=== PATIENT | female | born 1980 | race Hispanic/Latino ===

== ENCOUNTER 2018-08-13 06:58 | Day surgery (SDC) | payer OTHER ==
[2018-08-12 17:25] VITALS: BP 128/72
[2018-08-13] VITALS (14 sets, daily range): BP systolic 115–142; BP diastolic 64–85
[~2018-08-13] VITALS: Ht 165.1 cm; Wt 90.7 kg
[~2018-08-13 06:58] MED LIST: OMEP20CA10 PO; [UNRECOGNIZED DRUG - REMARK] PO
[2018-08-13 07:22] LABS: BASOPHILS % (AUTO) 0.5 % (0.0-5.0); EOSINOPHILS % (AUTO) 1.3 % (0.0-8.0); HEMATOCRIT 36.8 % (36-48); LYMPHOCYTES % (AUTO) 26.4 % (21.0-51.0); MEAN CORPUSCULAR HEMOGLOBIN 24.6 pg (27.0-33.0); MEAN CORPUSCULAR HGB CONC 31.3 g/dL (32.0-36.0); MEAN CORPUSCULAR VOLUME 78.6 fL (79-99); MONOCYTES % (AUTO) 7.5 % (3.0-13.0); NEUTROPHILS % (AUTO) 64.3 % (40.0-77.0); NUCLEATED RED BLOOD CELLS 0.1 % (0.0-0.19); PLATELET COUNT (AUTO) 382 K/uL (130-400); RED BLOOD CELL COUNT(AUTO) 4.69 MIL/uL (4.00-5.50); WHITE BLOOD COUNT (AUTO) 10.5 K/uL (4.8-10.8)
[2018-08-13] MEDS: LACTATED RINGERS 1000ML 1,000 ML IV SCH ×2 (07:37→08:56)
[2018-08-13] MEDS ORDERED: LIDOCAINE PF 2% 5ML ABBOJECT ONE (08:06)
[2018-08-13] MEDS ORDERED: PROPOFOL 1000 MG/100 ML 100 ML IV ONE (08:06)
[2018-08-13] MEDS ORDERED: ONDANSETRON HCL MDV 20ML 2 MG/ML VIAL ONE (08:06)
[2018-08-13] MEDS ORDERED: FENTANYL CITRATE PF 50 MCG/1 ML 2ML VIAL ONE (08:07)
[2018-08-13] MEDS ORDERED: MIDAZOLAM HCL 1 MG/ML 2ML VIAL ONE (08:07)
[2018-08-13] MEDS ORDERED: ROCURONIUM 10MG/1ML SYR 10 MG/ML ML ONE (08:08)
[2018-08-13] MEDS ORDERED: ACETIC ACID 0.25% 1,000 ML IRRIG.SOLN ONE (08:10)
[2018-08-13] MEDS ORDERED: STRONG IODINE SOLUTION 30ML BOTTLE ONE (08:11)
[2018-08-13] MEDS ORDERED: MEPERIDINE-PF 25 MG/ML SYG ONE ×2 (09:08→09:22)
== END 2018-08-13 11:00 | disposition home or self-care (01) ==
LOC: DAH 06:58
PROVIDERS: ATTEND Obstetrics & Gynecology
DX: N84.1 Polyp of cervix uteri (principal); D64.9 Anemia, unspecified; K21.9 Gastro-esophageal reflux disease without esophagitis
CPT/HCPCS: 36415; 57522; 85025; 86850; 86900; 86901; 88305 ×2; A4351; A4556; A4606; J2001; J2175 ×2; J2250; J2704; J3010; J7120 ×2

== ENCOUNTER 2021-03-01 05:35 | Observation (INO) | payer OTHER ==
[2021-02-28 10:31] LABS: BASOPHILS % (AUTO) 0.5 % (0.0-5.0); EOSINOPHILS % (AUTO) 1.7 % (0.0-8.0); HEMATOCRIT 38.9 % (36-48); LYMPHOCYTES % (AUTO) 29.1 % (21.0-51.0); MEAN CORPUSCULAR HEMOGLOBIN 24.5 pg (27.0-33.0); MEAN CORPUSCULAR HGB CONC 30.3 g/dL (32.0-36.0); MEAN CORPUSCULAR VOLUME 80.9 fL (79-99); MONOCYTES % (AUTO) 5.3 % (3.0-13.0); PLATELET COUNT (AUTO) 341 K/uL (130-400); RED BLOOD CELL COUNT(AUTO) 4.81 MIL/uL (4.00-5.50); RED CELL DISTRIBUTION WIDTH 23.2 % (11.0-15.5); WHITE BLOOD COUNT (AUTO) 8.2 K/uL (4.8-10.8)
[2021-02-28 13:20] VITALS: BP 159/88
[2021-03-01] VITALS (22 sets, daily range): BP systolic 123–148; BP diastolic 64–95
[~2021-03-01] VITALS: Ht 162.6 cm; Wt 90.3 kg
[~2021-03-01 05:35] MED LIST changes: -OMEP20CA10 PO; +OMEP20CA12 PO; +VITAMIN D PO; -[UNRECOGNIZED DRUG - REMARK] PO
[2021-03-01] MEDS ORDERED: IBUP-2077 PO (06:40)
[2021-03-01] MEDS ORDERED: LACTATED RINGERS 1000ML 1,000 ML IV ONE (07:04)
[2021-03-01] MEDS ORDERED: CEFAZOLIN SODIUM 1 GM VIAL ONE (07:04)
[2021-03-01] MEDS ORDERED: LIDOCAINE PF 100MG/5ML (2%) SYRINGE 5ML ONE (07:56)
[2021-03-01] MEDS ORDERED: SUCCINYLCHOLINE CHLORIDE 20 MG/ML 10 ML VIAL ONE (07:56)
[2021-03-01] MEDS ORDERED: PROPOFOL 10 MG/ML 20ML VIAL IV ONE (07:57)
[2021-03-01] MEDS ORDERED: ROCURONIUM 10MG/1ML SYR 10 MG/ML ML ONE (07:57)
[2021-03-01] MEDS ORDERED: FENTANYL CITRATE PF 50 MCG/1 ML 2ML VIAL ONE ×2 (07:58→10:11)
[2021-03-01] MEDS ORDERED: LACTATED RINGERS 1000ML 1,000 ML IV SCH (08:45)
[2021-03-01] MEDS ORDERED: CEFAZOLIN SODIUM 1 GM VIAL IVP SCH (08:45)
[2021-03-01] MEDS ORDERED: GLYCOPYRROLATE 1 MG/5 ML SYRINGE ONE (09:36)
[2021-03-01] MEDS ORDERED: NEOSTIGMINE 5MG/5ML SYR IV ONE (09:36)
[2021-03-01] MEDS ORDERED: MEPERIDINE-PF 25 MG/ML SYG ONE ×2 (09:48→10:45)
[2021-03-01] MEDS ORDERED: SUGAMMADEX SODIUM 200 MG/2 ML VIAL IV ONE (10:16)
[2021-03-01] MEDS ORDERED: ONDANSETRON 4MG INJ IVP PRN (12:00)
[2021-03-01] MEDS ORDERED: PROMETHAZINE HCL 25 MG/ML 1ML AMPULE IM PRN (12:00)
[2021-03-01] MEDS ORDERED: IBUPROFEN 600 MG TABLET PO PRN (12:00)
[2021-03-01] MEDS ORDERED: BISACODYL 10 MG SUPP.RECT RC PRN (12:00)
[2021-03-01] MEDS ORDERED: MEPERIDINE-PF 75 MG/ML SYG ONE (12:41)
[2021-03-01] MEDS: PROMETHAZINE HCL 25 MG/ML 1ML AMPULE IM PRN ×3 (12:59→22:32)
[2021-03-01] MEDS: MEPERIDINE-PF 75 MG/ML SYG IM PRN ×3 (13:00→22:33)
[2021-03-01] MEDS: ACETAMINOPHEN WITH CODEINE 1 TAB TAB PO PRN (15:32)
[2021-03-01] MEDS: DEXTROSE 5 %-0.45 % NACL 1,000 ML IV PRN ×2 (15:33→23:27)
[2021-03-02 03:10] VITALS: BP 137/72
[2021-03-02] MEDS: ACETAMINOPHEN WITH CODEINE 1 TAB TAB PO PRN ×3 (05:39→12:18)
[2021-03-02 06:27] LABS: HEMATOCRIT 34.9 % (36-48); MEAN CORPUSCULAR HEMOGLOBIN 25.6 pg (27.0-33.0); MEAN CORPUSCULAR HGB CONC 31.2 g/dL (32.0-36.0); MEAN CORPUSCULAR VOLUME 82.1 fL (79-99); RED BLOOD CELL COUNT(AUTO) 4.25 MIL/uL (4.00-5.50); RED CELL DISTRIBUTION WIDTH 22.4 % (11.0-15.5); WHITE BLOOD COUNT (AUTO) 15.8 K/uL (4.8-10.8)
[2021-03-02 07:21] VITALS: BP 132/80
[2021-03-02] MEDS: DEXTROSE 5 %-0.45 % NACL 1,000 ML IV PRN (07:31)
[2021-03-02] MEDS ORDERED: HYDROCODONE/ACETAMINOPHEN 5/325 MG TAB PO PRN (08:30)
[2021-03-02] MEDS: SIMETHICONE 80 MG TAB.CHEW PO PRN ×3 (08:53→20:56)
[2021-03-02] MEDS: DOCUSATE SODIUM 100 MG CAP PO PRN ×2 (08:53→20:57)
[2021-03-02] MEDS: NITROFURANTOIN MONOHYD/M-CRYST 100 MG CAPSULE PO SCH ×2 (09:29→20:57)
[2021-03-02 11:10] VITALS: BP 134/87
[2021-03-02] MEDS: IBUPROFEN 800 MG TAB PO PRN (16:11)
[2021-03-02 16:17] VITALS: BP 134/86
[2021-03-02 19:20] VITALS: BP 134/82
[2021-03-02 23:07] VITALS: BP 125/78
[2021-03-03] MEDS: IBUPROFEN 800 MG TAB PO PRN ×2 (02:42→09:19)
[2021-03-03 03:03] VITALS: BP 132/79
[2021-03-03] MEDS: ACETAMINOPHEN WITH CODEINE 1 TAB TAB PO PRN (03:49)
[2021-03-03 07:20] VITALS: BP 128/74
[2021-03-03] MEDS: DOCUSATE SODIUM 100 MG CAP PO PRN (09:18)
[2021-03-03] MEDS: SIMETHICONE 80 MG TAB.CHEW PO PRN (09:18)
[2021-03-03] MEDS: NITROFURANTOIN MONOHYD/M-CRYST 100 MG CAPSULE PO SCH (09:18)
== END 2021-03-03 11:20 | disposition home or self-care (01) ==
LOC: DAH 05:35 → WSH 05:36
PROVIDERS: ADMIT Obstetrics & Gynecology; ATTEND Obstetrics & Gynecology
DX: D25.9 Leiomyoma of uterus, unspecified (principal); D64.9 Anemia, unspecified; K46.9 Unspecified abdominal hernia without obstruction or gangrene
CPT/HCPCS: 36415 ×2; 58291; 85025; 85027; 86850; 86900; 86901; 87635; 96361; 96365; 96366 ×2; 96372; 96375; A4215; A4221; A4222; A4223; A4344; A4351; A4606; A4663; A4930; A6260; C9803; G0378 ×51; J0330; J0690; J2001; J2175 ×5; J2405; J2550 ×2; J2704; J2710; J3010 ×2; J3490; J7120 ×2